=== PATIENT | male | born 1945 | race Caucasian/White ===

== ENCOUNTER 2022-05-31 15:24 | Outpatient (CLI) | payer MEDICARE ==
--- NOTE | 2022-05-31 21:42 | Ultrasound Report ---
PROCEDURE: Bladder INDICATIONS: BENIGN PROSTATIC HYPERPLASIA W/LOWER URINARY TRAC TECHNIQUE: Real-time scanning was performed of the bladder, with image documentation. COMPARISON: None. FINDINGS: Bladder: Pre-void bladder volume is 127 mL. Post-void residual is 30 mL. Pre-void images demonstra te no intraluminal masses or stones. On pre-void images, both ureteral jets are noted with color Dop pler interrogation. (Of note, ureteral jets may not be detectable in up to 25% of cases due to insuf ficient differences in specific gravity between ureteral and bladder urine). Miscellaneous: No free pelvic fluid. Prostate is not seen. IMPRESSION: Post void residual 30 cc. Reviewed by: Jose Michelle MD on 05/31/2022 9:40 PM PST Approved by: Jose Michelle MD on 05/31/2022 9:40 PM PST Station ID: [id number]
== END 2022-05-31 15:25 | disposition home or self-care (01) ==
LOC: DI 15:24
PROVIDERS: ATTEND Internal Medicine
DX: N40.1 Benign prostatic hyperplasia with lower urinary tract symptoms (principal)

== ENCOUNTER 2023-04-22 09:44 | Outpatient (CLI) | payer MEDICARE ==
--- NOTE | 2023-04-22 12:08 | XRAY Report ---
PROCEDURE: Lumbar Spine 2-3V INDICATIONS: LOW BACK PAIN TECHNIQUE: 2 views of the lumbar spine were acquired. COMPARISON: X-ray lumbar spine 08/30/2021. FINDINGS: Bones: 5 [id number] vertebrae are present. Levocurvature of the lumbar spine. Grade 1 anterolis thesis of L4 on L5. There are multilevel degenerative changes of the lumbar spine with facet arthropa thy and disc height loss with degenerative endplate changes and marginal spurring. This is most prono unced at L5-S1. Mild anterior wedge compression deformity of L1 appears mildly progressed compared to prior. No suspicious bony lesions. Soft tissues: Overlying bowel gas pattern is normal. No suspicious soft tissue calcifications. Ath erosclerotic vascular calcifications. IMPRESSION: Multilevel degenerative changes of the lumbar spine are redemonstrated. Mild anterior wedge compressi on deformity of L1 appears mildly progressed compared to prior. Recommend correlation with samantha tend rowan. MRI can be obtained for further evaluation as indicated. Reviewed by: Corby Choi MD on 04/22/2023 12:07 PM PST Approved by: Corby Choi MD on 04/22/2023 12:07 PM PST Station ID: [id number]
== END 2023-04-22 09:45 | disposition home or self-care (01) ==
LOC: DI 09:44
PROVIDERS: ATTEND Internal Medicine
DX: M47.816 Spondylosis without myelopathy or radiculopathy, lumbar region (principal); M47.817 Spondylosis without myelopathy or radiculopathy, lumbosacral region; M43.9 Deforming dorsopathy, unspecified

== ENCOUNTER 2023-09-06 08:26 | Outpatient (CLI) | payer MEDICARE ==
--- NOTE | 2023-09-06 19:17 | MRI Report ---
PROCEDURE: Lumbar Spine WO INDICATIONS: L1 FX TECHNIQUE: Multiplanar multisequential MRI images of the lumbar spine were obtained without intraven ous contrast. COMPARISON: None. FINDINGS: Alignment and Curvature: Convex right thoracolumbar scoliosis. Bone Marrow: L1 compression fracture without marrow edema. 50% anterior height loss. No retropulsed fracture fragment. Spinal Cord: Conus medullaris terminates at the L1 level. Visualized cord demonstrates normal signa l and size. Paraspinal Soft Tissues: Unremarkable perivertebral soft tissues. T12-L1: Disc bulge without central stenosis. L1-L2: Normal in appearance. L2-L3: Normal in appearance. L3-L4: Arthropathy. No central stenosis. No foraminal stenosis L4-L5: Arthropathy and disc bulge combine to result in moderate central stenosis. No foraminal sten osis L5-S1: Arthropathy and disc bulge. No central stenosis. Severe left and moderate right foraminal st enosis IMPRESSION: Multilevel degenerative disc disease and arthropathy results in varying degrees of central and forami nal stenosis including moderate central stenosis L4-5 Reviewed by: Caesar Montana MD on 09/06/2023 6:16 PM JACOBY Approved by: Caesar Montana MD on 09/06/2023 6:16 PM JACOBY Station ID: [id number]
== END 2023-09-06 08:27 | disposition home or self-care (01) ==
LOC: DI 08:26
PROVIDERS: ATTEND Internal Medicine
DX: M47.815 Spondylosis without myelopathy or radiculopathy, thoracolumbar region (principal); M47.816 Spondylosis without myelopathy or radiculopathy, lumbar region; M47.817 Spondylosis without myelopathy or radiculopathy, lumbosacral region; M48.061 Spinal stenosis, lumbar region without neurogenic claudication; M48.07 Spinal stenosis, lumbosacral region